=== PATIENT | female | born 1970 | race American Indian/Alaskan Native ===

== ENCOUNTER 2017-07-23 16:06 | Emergency (ER) | payer SELFPAY ==
--- NOTE | 2017-07-23 16:32 | Emergency Department Report ---
Chief Complaint: Fall Stated Complaint: PAIN AFTER FALLING Time Seen by Provider: 07/23/17 16:29 - HPI History of Present Illness: PT states she fell in a restaurant. PT states she landed between a chair. pt states her arms and legs hurt. PT states she has a hx of htn and rotator cuff injury - ROS Review of Systems: + anxiety + joint pain - Exam Physical Exam: PT very anxious moves all extremities well MSE screening note: Focused history and physical exam performed. Due to findings the following was ordered: labs ED Disposition for MSE Condition: Stable
[2017-07-23 17:11] LABS: Alanine Aminotransferase 9 units/L (7-56); Albumin 4.2 g/dL (3.9-5); Albumin/Globulin Ratio 1.1 %; Alkaline Phosphatase 65 units/L (35-129); Anion Gap 20 mmol/L; BUN/Creatinine Ratio 11.66; Blood Urea Nitrogen 7 mg/dL (7-17); Calcium 9.9 mg/dL (8.4-10.2); Carbon Dioxide 22 mmol/L (22-30); Chloride 101.5 mmol/L (98-107); Glucose 90 mg/dL (65-100); Potassium 3.8 mmol/L (3.6-5.0); Sodium 140 mmol/L (137-145); Total Protein 7.9 g/dL (6.3-8.2)
[2017-07-23 18:28] LABS: Red Blood Count 4.95 M/mm3 (3.65-5.03); White Blood Count 8.1 K/mm3 (4.5-11.0)
[2017-07-23 18:43] LABS: Hematocrit 23.9 % (30.3-42.9); Hemoglobin 6.3 gm/dl (10.1-14.3)
[2017-07-23 18:44] LABS: Mean Corpuscular HGB Conc 26 % (30-34); Mean Corpuscular Hemoglobin 13 pg (28-32); Platelet Count 343 K/mm3 (140-440); Red Cell Distribution Width 23.4 % (13.2-15.2)
[2017-07-23 18:45] LABS: Mean Corpuscular Volume < 50 fl (79-97)
[2017-07-23 19:53] LABS: Anisocytosis 2+; Basophils % (Manual) 0 % (0.0-1.8); Blastocytes % (Manual) 0 %; Eosinophils % (Manual) 0 % (0.0-4.3); Hypochromasia 3+
[2017-07-23 19:54] LABS: Microcytosis 3+
[2017-07-23 19:57] LABS: Platelet Estimate Consistent w Auto
[2017-07-23 19:58] LABS: Diff Status Complete
[2017-07-23] MEDS ORDERED: NORCO 5/325 PO ONE (21:14)
--- NOTE | 2017-07-23 21:22 | Emergency Department Report ---
HPI - General Chief Complaint: Fall Time Seen by Provider: 07/23/17 16:29 - HPI HPI: Room 18 The patient is a 46-year-old female presenting chief complaint pain after trip and fall. The patient states partially 4 hours ago while at a restaurant she tripped over carpet and fell forward landing on her knees but injuring her right distal forearm. Patient denies loss of consciousness during the fall. The patient claims pain in bilateral knees, lateral iliac crest and her right distal forearm in addition to the right shoulder. The patient currently gives her pain score of 9/10. The patient states she has a history of hypertension but is not taking medication Location: [see above] Duration: Constant 4 hours Quality: Pain Severity: 9/10 Modifying factors: [see above] Context: [see above] Mode of transportation: [not driving] ED Past Medical Hx - Past Medical History Hx Hypertension: Yes Hx Psychiatric Treatment: Yes (anxiety) Additional medical history: torn rotator cuff - Surgical History Past Surgical History?: No - Family History Family history: no significant - Social History Smoking Status: Never Smoker Substance Use Type: None (denies illicit drug use) - Medications Home Medications: Home Medications Medication Instructions Recorded Confirmed Last Taken Type Docusate Sodium [Colace] 100 mg PO BID #60 capsule 07/23/17 Unknown Rx Ferrous Sulfate [Feosol 325 MG tab] 325 mg PO TID #90 tablet 07/23/17 Unknown Rx HYDROcodone/APAP 5-325 [[place] 1 - 2 each PO Q6HR PRN #14 tablet 07/23/17 Unknown Rx 5/325] amLODIPine [Norvasc] 10 mg PO DAILY #90 tab 07/23/17 Unknown Rx ED Review of Systems ROS: Stated complaint: PAIN AFTER FALLING Other details as noted in HPI Comment: All other systems reviewed and negative Constitutional: denies: chills, fever Eyes: denies: eye pain, eye discharge, vision change ENT: denies: ear pain, throat pain Respiratory: denies: cough, shortness of breath, wheezing Cardiovascular: denies: chest pain, palpitations Endocrine: no symptoms reported Gastrointestinal: denies: abdominal pain, nausea, diarrhea Genitourinary: denies: urgency, dysuria, discharge Musculoskeletal: arthralgia, myalgia Skin: denies: rash, lesions Neurological: denies: headache, weakness, paresthesias Psychiatric: denies: anxiety, depression Hematological/Lymphatic: denies: easy bleeding, easy bruising Physical Exam - Physical Exam Vital Signs: Vital Signs 07/23/17 16:28 Temperature 98.2 F Pulse Rate 110 H Respiratory 20 Rate Blood Pressure 233/126 O2 Sat by Pulse 100 Oximetry Physical Exam: GENERAL: The patient is well-developed well-nourished female sitting in chair appearing slightly anxious but in no acute distress. [] HEENT: Normocephalic. Atraumatic. Extraocular motions are intact. Patient has moist mucous membranes. NECK: Supple. Trachea midline CHEST/LUNGS: Clear to auscultation. There is no respiratory distress noted. HEART/CARDIOVASCULAR: Regular. There is no tachycardia. There is no gallop rub or murmur. ABDOMEN: There is no abdominal distention. SKIN: There is no rash. There is no edema. There is no diaphoresis. NEURO: The patient is awake, alert, and oriented. The patient is cooperative. The patient has normal speech MUSCULOSKELETAL: There is tenderness to palpation of the distal right forearm. There is no tenderness to palpation in the right anatomical snuffbox. There is tenderness to palpation of bilateral knees. There is tenderness to palpation of the right shoulder. There is no limitation range of motion. There is no evidence of acute injury. ED Course Vital Signs 07/23/17 16:28 Temperature 98.2 F Pulse Rate 110 H Respiratory 20 Rate Blood Pressure 233/126 O2 Sat by Pulse 100 Oximetry - Reevaluation(s) Reevaluation #1: 07/23/17 22:43 Blood pressure improved ED Medical Decision Making - Lab Data Result diagrams: 07/23/17 17:59 07/23/17 16:37 Laboratory Tests 07/23/17 07/23/17 16:37 17:59 WBC 8.1 RBC 4.95 Hgb 6.3 L Hct 23.9 L MCV < 50 L MCH 13 L MCHC 26 L RDW 23.4 H Plt Count 343 Add Manual Diff Complete Total Counted 100 Seg Neuts % (Manual) 60.0 Band Neutrophils % 0 Lymphocytes % (Manual) 31.0 Reactive Lymphs % (Man) 0 Monocytes % (Manual) 9.0 H Eosinophils % (Manual) 0 Basophils % (Manual) 0 Metamyelocytes % 0 Myelocytes % 0 Promyelocytes % 0 Blast Cells % 0 Nucleated RBC % Not Reportable Seg Neutrophils # Man 4.9 Band Neutrophils # 0.0 Lymphocytes # (Manual) 2.5 Abs React Lymphs (Man) 0.0 Monocytes # (Manual) 0.7 Eosinophils # (Manual) 0.0 Basophils # (Manual) 0.0 Metamyelocytes # 0.0 Myelocytes # 0.0 Promyelocytes # 0.0 Blast Cells # 0.0 WBC Morphology Not Reportable Hypersegmented Neuts Not Reportable Hyposegmented Neuts Not Reportable Hypogranular Neuts Not Reportable Smudge Cells Not Reportable Toxic Granulation Not Reportable Toxic Vacuolation Not Reportable Dohle Bodies Not Reportable Pelger-Huet Anomaly Not Reportable Farzad Rods Not Reportable Platelet Estimate Consistent w auto Clumped Platelets Not Reportable Plt Clumps, EDTA Not Reportable Large Platelets Not Reportable Giant Platelets Not Reportable Platelet Satelliting Not Reportable Plt Morphology Comment Not Reportable RBC Morphology Not Reportable Dimorphic RBCs Not Reportable Polychromasia Not Reportable Hypochromasia 3+ Poikilocytosis Not Reportable Anisocytosis 2+ Microcytosis 3+ Macrocytosis Not Reportable Spherocytes Not Reportable Pappenheimer Bodies Not Reportable Sickle Cells Not Reportable Target Cells Not Reportable Tear Drop Cells Not Reportable Ovalocytes Not Reportable Helmet Cells Not Reportable Bailey-[place] Bodies Not Reportable [place] Rings Not Reportable Tati Cells Not Reportable Bite Cells Not Reportable Crenated Cell Not Reportable Elliptocytes Not Reportable Acanthocytes (Spur) Not Reportable Rouleaux Not Reportable Hemoglobin C Crystals Not Reportable Schistocytes Not Reportable Malaria parasites Not Reportable Timur Bodies Not Reportable Hem Pathologist Commnt No Sodium 140 Potassium 3.8 Chloride 101.5 Carbon Dioxide 22 Anion Gap 20 BUN 7 Creatinine 0.6 L Estimated GFR > 60 BUN/Creatinine Ratio 11.66 Glucose 90 Calcium 9.9 Total Bilirubin 0.70 AST 14 ALT 9 Alkaline Phosphatase 65 Total Protein 7.9 Albumin 4.2 Albumin/Globulin Ratio 1.1 - Radiology Data Radiology results: report reviewed (right shoulder x-ray, right forearm x-ray, pelvis x-ray, bilateral knee x-rays), image reviewed (right shoulder x-ray, right forearm x-ray, pelvis x-ray, bilateral knee x-rays) interpreted by me: right shoulder x-ray-no acute fracture right forearm x-ray-no acute fracture pelvis x-ray- no acute fracture bilateral knee x-rays-no acute fractures - Differential Diagnosis extremity fracture, hypertension, anemia Critical care attestation.: If time is entered above; I have spent that time in minutes in the direct care of this critically ill patient, excluding procedure time. ED Disposition Clinical Impression: Hypertension, Microcytic anemia, Contusion of right wrist, Contusion of knee, right, Contusion of knee, left Disposition: - TO HOME OR SELFCARE Is pt being admited?: No Does the pt Need Aspirin: No Condition: Stable Instructions: Hypertension (ED) Additional Instructions: Return to the emergency department immediately should you develop worsening symptoms, fever, inability to tolerate food or liquid or any other concerns. Prescriptions: amLODIPine [Norvasc] 10 mg PO DAILY #90 tab Docusate Sodium [Colace] 100 mg PO BID #60 capsule Ferrous Sulfate [Feosol 325 MG tab] 325 mg PO TID #90 tablet HYDROcodone/APAP 5-325 [[place] 5/325] 1 - 2 each PO Q6HR PRN #14 tablet PRN Reason: Pain Referrals: JAIME YARBROUGH MD [Staff Physician] - 3-5 Days Time of Disposition: 22:45
[2017-07-23] MEDS ORDERED: CATAPRES PO ONE (21:29)
[2017-07-23] MEDS ORDERED: CATAPRES ONE (21:33)
[2017-07-23 23:14] VITALS: BP 160/80
--- NOTE | 2017-07-24 08:10 | XRay Report ---
RIGHT FOREARM, 2 VIEWS BILATERAL KNEES, 3 VIEWS PELVIS, 1 VIEW RIGHT SHOULDER, 3 VIEWS History: Pain after fall No comparison exams. RIGHT FOREARM: AP and lateral views of the forearm demonstrate normal mineralization and contours for this patient's age. No destructive changes are noted and the adjacent soft tissues are normal. IMPRESSION: Normal right forearm. AP PELVIS: AP view of the pelvis shows normal pelvic contour and soft tissues. The hips are symmetric and within normal limits as are the sacroiliac joints. IMPRESSION: Normal pelvis. BILATERAL KNEES, 3 VIEWS: Normal bone mineralization. No acute osseous injury or joint pathology is detected. Normal soft tissues. IMPRESSION: Unremarkable bilateral knees. RIGHT SHOULDER: Routine views demonstrate normal bony and soft tissue structures with normal joint alignment of the shoulder. IMPRESSION: Normal study.
== END 2017-07-23 23:13 | disposition home or self-care (01) ==
LOC: ED 16:06
DX: I10 Essential (primary) hypertension (principal); D50.9 Iron deficiency anemia, unspecified; S80.02XA Contusion of left knee, initial encounter; S80.01XA Contusion of right knee, initial encounter; S60.211A Contusion of right wrist, initial encounter; W01.198A Fall on same level from slipping, tripping and stumbling with subsequent striking against other object, initial encounter; Y93.89 Activity, other specified; Y92.89 Other specified places as the place of occurrence of the external cause; Y99.8 Other external cause status
CPT/HCPCS: 36415; 72170; 80053; 85007; 85025; 99284

== ENCOUNTER 2021-10-14 20:48 | Emergency (ER) | payer OTHER, MEDICAID ==
[2021-10-14 21:02] VITALS: BP 188/89
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
== END 2021-10-14 22:48 | disposition home or self-care (01) ==
LOC: ED 20:48
DX: R51.9 Headache, unspecified (principal); I10 Essential (primary) hypertension; F41.9 Anxiety disorder, unspecified; Z79.899 Other long term (current) drug therapy; V89.2XXA Person injured in unspecified motor-vehicle accident, traffic, initial encounter; Y93.89 Activity, other specified; Y92.488 Other paved roadways as the place of occurrence of the external cause; Y99.8 Other external cause status
CPT/HCPCS: 99283

== ENCOUNTER 2021-12-21 09:12 | Emergency (ER) | payer OTHER, MEDICAID ==
[2021-12-21 09:20] VITALS: BP 209/101
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
== END 2021-12-21 09:30 | disposition home or self-care (01) ==
LOC: ED 09:12
DX: S39.012A Strain of muscle, fascia and tendon of lower back, initial encounter (principal); S16.1XXA Strain of muscle, fascia and tendon at neck level, initial encounter; I10 Essential (primary) hypertension; V87.7XXA Person injured in collision between other specified motor vehicles (traffic), initial encounter; Y93.89 Activity, other specified; Y92.89 Other specified places as the place of occurrence of the external cause; Y99.8 Other external cause status
CPT/HCPCS: 99283